=== PATIENT | female | born 1960 | race Caucasian/White ===

== ENCOUNTER 2016-12-15 12:14 | Emergency (ER) | payer BC ==
[~2016-12-15] VITALS: Wt 64.0 kg
[2016-12-15 12:21] VITALS: Wt 64.0 kg
[2016-12-15] MEDS ORDERED: FLUORESCEIN STRIP RIGHT EYE ONE (13:00)
[2016-12-15] MEDS ORDERED: HYDROCODONE/APAP (5/325) TAB PO ONE (13:00)
[2016-12-15] MEDS ORDERED: TRAM-40 PO (13:31)
[2016-12-15] MEDS ORDERED: GANC5GEL OP (13:31)
[2016-12-15] MEDS ORDERED: CEPH500C PO (13:31)
--- NOTE | 2016-12-15 14:15 | ERD ---
ER Documentation Chief Complaint Date/Time DATE: 12/15/16 TIME: 14:10 Chief Complaint right eye pain and redness for 4 days. no fevers. HPI 56-year-old female comes in with right lower eyelid swelling and redness for the past 4 days. Patient was seen in a nearby emergency room at [place] and was given acyclovir. She states that they did an exam and was told that it was a viral infection. She states that she was given a prescription for [place] but the pharmacy did not have the medication and was not able to fill the pain medication. Currently she is not taking anything for pain, this is her only medication. She denies photophobia, blurred vision. She does report a prodrome of symptoms that include fever and body aches previously. No eye discharge from the right eye. No ear or nasal pain. ROS All systems reviewed and are negative except as per history of present illness. Medications Home Meds Active Scripts Cephalexin* (Cephalexin*) 500 Mg Capsule, 500 MG PO Q6, #20 CAP Prov:SCOTT COVARRUBIAS PA-C 12/15/16 Tramadol Hcl* (Ultram*) 50 Mg Tablet, 50 MG PO Q6H Y for PAIN, #15 TAB Prov:SCOTT COVARRUBIAS PA-C 12/15/16 Ganciclovir (Zirgan) 5 Gm Gel..gm., 1 DROP OP 5 TIMES DAILY, #1 Prov:SCOTT COVARRUBIAS PA-C 12/15/16 PMhx/Soc Medical and Surgical Hx: pt denies Surgical Hx History of Surgery: No Hx Neurological Disorder: No Hx Respiratory Disorders: No Hx Cardiac Disorders: Yes (HTN, HDL) Hx Psychiatric Problems: Yes (DEPRESSION) Hx Miscellaneous Medical Probl: No Hx Alcohol Use: No Hx Substance Use: No Hx Tobacco Use: No Smoking Status: Never smoker Physical Exam Vitals Vital Signs Date Time Temp Pulse Resp B/P Pulse Ox O2 Delivery O2 Flow Rate FiO2 12/15/16 12:21 97.9 68 20 170/8 99 Physical Exam General: Well-developed, well-nourished. The patient appears in no acute distress. HEENT: Head is normocephalic, atraumatic. No scleral icterus. Pupils are equal , round, and reactive. Eyes are Juan R oral mucous membranes are moist. No pharyngeal erythema. No lesions in auditory canal. No nasal lesions. Eye Exam: Visual Cline: Intact in all four quadrants bilaterally Lac ducts/glands: No swelling Lids w/ evertion: Normal, no foreign body Conj/[place]: Clear, negative Fluorescein/Vicki's, no dendritic findings Anterior Chamber: Clear Retina exam: No obvious abnormality Neck: Supple. Nontender. Lungs: Clear to auscultation. Normal air movement. Heart: Regular rate and rhythm. S1 and S2 are normal. No murmurs, gallops, or rubs. Abdomen: Soft, nontender, nondistended. Bowel sounds are normoactive. Extremities: No clubbing or cyanosis. Normal pulses. Moving extremities x 4. No weakness. Neurologic: Alert and oriented 3. No focal deficits. Skin: Normal turgor. No rash or lesions. Results 24 hrs Current Medications Medications (Trade) Dose Ordered Sig/Haider Route PRN Reason Start Time Stop Time Status Last Admin Dose Admin Acetaminophen/ Hydrocodone Bitart ([place] (5/325)) 1 tab ONCE ONCE PO 12/15/16 13:00 12/15/16 13:53 DC 12/15/16 12:51 Fluorescein Sodium (Edcrf-B-Rtxkp) 1 strip ONCE ONCE RIGHT EYE 12/15/16 13:00 12/15/16 13:53 DC Procedures/MDM ED course: She was given [place] for pain. MDM: 56-year-old female presents to the emergency room with right lower eyelid shingles. No active evidence of herpetic ophthalmicus. She does have surrounding edema and inflammation of the right lower eyelid, no involvement of the globe. She has no signs of an orbital cellulitis. She was advised to follow-up with ophthalmology tomorrow morning, she was given information to [facility]. No Vo sign, no Lu Galan seen. Zirgan will be given as precautionary measures until she sees ophtho tomorrow. Departure Diagnosis: Primary Impression: Shingles Condition: Good Patient Instructions: Shingles (Herpes Zoster) Referrals: [facility] Hours: Mon - Fri 9:00 AM - 5:00 PM Additional Instructions: OPHTHALMOLOGY SPECIALIST: YOU HAVE A MEDICAL CONDITION WHICH REQUIRES YOU TO SEE A SPECIALIST WITHIN THE NEXT 1-2 DAYS. PLEASE FOLLOW UP WITH YOUR PRIMARY PHYSICIAN FOR REFFERAL.IF YOU DO NOT HAVE A PRIMARY CARE PHYSICIAN AND/OR YOU CAN NOT AFFORD TO SEE A PHYSICIAN THE FOLLOWING RESOURCES HAVE BEEN SUPPLIED TO YOU. IT IS YOUR RESPONSIBILITY TO BE SEEN BY THE SPECIALIST SCOTT COVARRUBIAS PA-C Dec 15, 2016 14:15
== END 2016-12-15 13:35 | disposition home or self-care (01) ==
LOC: FTE 12:14
DX: B02.9 Zoster without complications (principal); I10 Essential (primary) hypertension
CPT/HCPCS: Z7502; Z7610; 99284

== ENCOUNTER 2017-02-11 06:57 | Day surgery (SDC) | payer BC ==
[~2017-02-11] VITALS: Ht 162.6 cm; Wt 65.7 kg
[~2017-02-11 06:57] MED LIST: CEPH500C PO; GANC5GEL OP; TRAM-40 PO
[2017-02-11 07:35] VITALS: Ht 162.6 cm; Wt 65.7 kg
[2017-02-11] MEDS ORDERED: cholesterol (07:45)
[2017-02-11] MEDS ORDERED: blood pressure (07:45)
[2017-02-11 08:15] VITALS: BP 205/92; PULSE 83; RESP 23
[2017-02-11] MEDS ORDERED: MIDAZOLAM 1 MG/ML 2 ML INJ ONE ×3 (08:49)
[2017-02-11] MEDS ORDERED: FENTAnyl 50 MCG/ML VIAL ONE (08:49)
[2017-02-11 09:15] VITALS: BP 127/75
--- NOTE | 2017-02-11 09:48 | GILP ---
DATE OF PROCEDURE: NAME OF PROCEDURES: Colonoscopy and biopsy. SURGEON: Edilia Panchal MD PREOPERATIVE DIAGNOSIS: Screening colonoscopy. POSTOPERATIVE DIAGNOSES 1. Colonoscopy all the way to the cecum. 2. Small transverse colon polyp was removed using the biopsy forceps. 3. Large internal and external hemorrhoids. INDICATION FOR THE PROCEDURE: Ms. Timi Roe is a 56-year-old female patient who had rectal bleed ing. The patient never had screening colonoscopy. The patient was scheduled for colonoscopy for fu rther evaluation. The procedure and possible complications are well explained to the patient, she understood and conse nted to the procedure. DESCRIPTION OF PROCEDURE: Under the influence of fentanyl and Versed, the colonoscope was carefully introduced in the rectum and under direct vision, it was advanced all the way to the cecum. FINDINGS: The patient had a small transverse colon polyp and it was removed using the biopsy forcep s. Patient was noted to have large internal and external hemorrhoids. She tolerated the procedure very well and there was no complication from the procedure. At the end of the procedures, she was awake with stable vital signs and she was discharged home to the care of her family. IMPRESSION: 1. Colonoscopy all the way to the cecum. 2. Small transverse colon polyp was removed using the biopsy forceps. 3. Large internal and external hemorrhoids. PLAN: Await histopathology report. Because of the large size of the hemorrhoids and rectal bleedin g. Patient needs surgical evaluation for hemorrhoidectomy. Next screening colonoscopy in 10 years. Dictated By: EDILIA GAMBINO/RYLAN Conf#: [id number] DID#: [id number]
== END 2017-02-11 09:44 | disposition home or self-care (01) ==
LOC: GIL 06:57
PROVIDERS: ATTEND Internal Medicine Gastroenterology
DX: Z12.11 Encounter for screening for malignant neoplasm of colon (principal); K64.4 Residual hemorrhoidal skin tags; K64.8 Other hemorrhoids; D12.3 Benign neoplasm of transverse colon; I10 Essential (primary) hypertension
CPT/HCPCS: 45380; 88305; J2250; J3010; Z7610

== ENCOUNTER 2017-05-07 17:53 | Emergency (ER) | payer BC ==
[~2017-05-07] VITALS: Ht 160 cm; Wt 79.8 kg
[~2017-05-07 17:53] MED LIST changes: -CEPH500C PO; -GANC5GEL OP; -TRAM-40 PO; +blood pressure; +cholesterol
[2017-05-07 17:59] VITALS: Ht 160 cm; Wt 79.8 kg
[2017-05-07] MEDS ORDERED: AZIT250T94 PO (19:45)
[2017-05-07] MEDS ORDERED: NAPR-260 PO (19:46)
--- NOTE | 2017-05-07 20:10 | ERD ---
ER Documentation Chief Complaint Date/Time DATE: 05/07/17 TIME: 20:07 Chief Complaint DENTAL/GUM PAINS HPI This patient is a 48-year-old female with no significant medical history presenting to the emergency department with complaints of right upper gum pain ongoing for the past week. Symptoms are improving slightly. She has not been taking medication for relief of symptoms. Aggravating factors include eating. She denies alleviating factors. She cannot see her dentist. She denies fevers , chills, nausea, vomiting, diarrhea, or other symptoms. ROS All systems reviewed and are negative except as per history of present illness. Medications Home Meds Active Scripts Naproxen* (Naprosyn*) 500 Mg Tablet, 500 MG PO BID Y for PAIN AND/OR INFLAMMATION, #30 TAB Prov:EVELINE COBOS PA-C 05/07/17 Azithromycin* (Zithromax*) 250 Mg Tablet, 250 MG PO .ZPACK DIRECTED, #6 TAB TAKE 500 MG (2 TABS) THE FIRST DAY THEN 250 MG (1 TAB) DAYS 2-5 Prov:EVELINE COBOS PA-C 05/07/17 Reported Medications [cholesterol] No Conflict Check 02/11/17 [blood pressure] No Conflict Check 02/11/17 Allergies Allergies: Coded Allergies: Penicillins (Verified Allergy, Unknown, rash, 02/11/17) PMhx/Soc History of Surgery: No Anesthesia Reaction: No Hx Neurological Disorder: No Hx Respiratory Disorders: No Hx Cardiac Disorders: Yes (high cholesterol) Hx Psychiatric Problems: No Hx Miscellaneous Medical Probl: No Hx Alcohol Use: Yes Hx Substance Use: No Hx Tobacco Use: Yes Smoking Status: Current every day smoker Physical Exam Vitals Vital Signs Date Time Temp Pulse Resp B/P Pulse Ox O2 Delivery O2 Flow Rate FiO2 05/07/17 17:59 98.1 80 18 135/82 99 Physical Exam Const: Nontoxic, well-appearing female in no acute distress. Head: Atraumatic Eyes: Normal Conjunctiva ENT: Normal External Ears, Nose and Mouth. Poor dentition. Gingivitis noted. There is swelling with erythema around the right upper incisor. Neck: Full range of motion..~ No meningismus. Skin: No petechiae or rashes Back: No midline or flank tenderness Ext: No cyanosis, or edema Neur: Awake and alert Psych: Normal Mood and Affect Procedures/MDM 56-year-old female presents to the emergency department with complaints of dental pain. On physical examination vital signs are within normal limits. There is gingivitis and poor dentition noted with some redness of the gums surrounding the right upper incisor. The patient stable for outpatient management with a prescription for azithromycin and naproxen. I will cover her for possible dental abscess. Her questions and concerns were addressed and she agreed with the discharge plan and diagnosis. Close follow-up with the primary care physician and the dentist advised. Strict ER return precautions were discussed and the patient demonstrated good understanding of information given. Departure Diagnosis: Primary Impression: Toothache Condition: Fair Patient Instructions: Dental Pain Additional Instructions: No mas mejor en 2-3 bull, regresar. Mas peor en 24 horas, regresear rapidamente. Ir a doctor primario in 5-7 bull. Usar instrucciones cuando ashley medicamento. EVELINE COBOS PA-C May 07, 2017 20:09
== END 2017-05-07 19:54 | disposition home or self-care (01) ==
LOC: FTE 17:53
DX: K08.89 Other specified disorders of teeth and supporting structures (principal); F17.210 Nicotine dependence, cigarettes, uncomplicated
CPT/HCPCS: 99283

== ENCOUNTER 2017-07-31 09:46 | Emergency (ER) | payer BC ==
[~2017-07-31] VITALS: Ht 160 cm; Wt 66.0 kg
[~2017-07-31 09:46] MED LIST changes: +AZIT250T94 PO; +CLIN-73 PO; +HYDR-3011 PO; +NAPR-260 PO
[2017-07-31 09:49] VITALS: Ht 160 cm; Wt 66.0 kg
[2017-07-31] MEDS ORDERED: SOD CHLORIDE 0.9% 1,000 ML IV STA (10:22)
[2017-07-31] MEDS ORDERED: hydrALAzine 20 MG INJ IV ONE (10:30)
[2017-07-31] MEDS ORDERED: MAGN400T28 PO (11:05)
[2017-07-31] MEDS ORDERED: AMLO5TAB4 PO (11:05)
[2017-07-31 11:06] LABS: ADD UMIC NO; UR ASCORBIC ACID NEGATIVE (NEGATIVE); UR BILIRUBIN (Dip) NEGATIVE (NEGATIVE); UR BLOOD (Dip) NEGATIVE (NEGATIVE); UR CLARITY CLEAR (CLEAR); UR COLOR STRAW (YELLOW); UR GLUCOSE (Dip) NEGATIVE (NEGATIVE); UR KETONES (Dip) NEGATIVE (NEGATIVE); UR LEUKOCYTE ESTERASE (Dip) NEGATIVE Leu/ul (NEGATIVE); UR NITRITE (Dip) NEGATIVE (NEGATIVE); UR SPECIFIC GRAVITY (Dip) 1.008 (1.003-1.030); UR TOTAL PROTEIN (Dip) NEGATIVE (NEGATIVE); UR UROBILINOGEN (Dip) NEGATIVE (NEGATIVE)
[2017-07-31 11:21] LABS: BASOPHILS % 0.6 % (0.0-2.0); EOSINOPHILS # 0.1 10^3/ul (0.0-0.5); EOSINOPHILS % 1.4 % (0.0-7.0); HEMATOCRIT 41.7 % (37.0-47.0); HEMOGLOBIN 14.1 g/dl (12.0-16.0); LYMPHOCYTES # 2.1 10^3/ul (0.8-2.9); LYMPHOCYTES % 43.1 % (15.0-51.0); MEAN CORPUSCULAR HEMOGLOBIN 29.1 pg (29.0-33.0); MEAN CORPUSCULAR HGB CONC 33.8 g/dl (32.0-37.0); MEAN PLATELET VOLUME 9.2 fl (7.4-10.4); MONOCYTE # 0.6 10^3/ul (0.3-0.9); MONOCYTES % 11.8 % (0.0-11.0); NEUTROPHIL # 2.1 10^3/ul (1.6-7.5); NEUTROPHILS % 42.9 % (39.0-77.0); PLATELET COUNT 262 10^3/UL (140-415); RED BLOOD COUNT 4.85 10^6/ul (4.20-5.40); WHITE BLOOD COUNT 4.9 10^3/ul (4.8-10.8)
[2017-07-31 11:39] LABS: ALANINE AMINOTRANSFERASE 30 IU/L (13-69); ALBUMIN 4.3 g/dl (3.3-4.9); ALBUMIN/GLOBULIN RATIO 1.34; ALKALINE PHOSPHATASE 93 IU/L (42-121); AMYLASE 71 U/L (11-123); ANION GAP 12 (8-16); ASPARTATE AMINO TRANSFERASE 21 IU/L (15-46); BILIRUBIN,INDIRECT 0.3 mg/dl (0-1.1); BILIRUBIN,TOTAL 0.3 mg/dl (0.2-1.3); BLOOD UREA NITROGEN 16 mg/dl (7-20); CALCIUM 8.9 mg/dl (8.4-10.2); CARBON DIOXIDE 25 mmol/L (21-31); CHLORIDE 109 mmol/L (97-110); CREATININE 0.72 mg/dl (0.44-1.00); GLUCOSE 93 mg/dl (70-220); SODIUM 142 mmol/L (135-144); TOTAL PROTEIN 7.5 g/dl (6.1-8.1)
[2017-07-31 11:50] LABS: TROPONIN-I < 0.012 ng/ml (0.00-0.12)
[2017-07-31] MEDS ORDERED: HYDR25TA6 PO (11:58)
[2017-07-31] MEDS ORDERED: METOPROLOL 5 MG INJ IV ONE (12:00)
[2017-07-31 12:10] LABS: INR 0.94; PROTIME 12.6 Sec (12.2-14.2)
[2017-07-31 12:11] LABS: PARTIAL THROMBOPLASTIN TIME 28.4 Sec (25.0-35.0)
--- NOTE | 2017-07-31 12:37 | ERA ---
ER Documentation Chief Complaint Date/Time DATE: 07/31/17 TIME: 12:25 Chief Complaint diarrhea x 4 days HPI This is a very pleasant 57-year-old female with known history of hypertension, Vietnamese-speaking, presents to the emergency department complaining of 4 days of loose watery stools. The patient had taken a 7 day course of Bactrim and Keflex for a cellulitis of her left upper extremity. She stated the cellulitis has resolved but after day 7 of the antibiotic she started to develop loose watery stools. She has had roughly 2-3 episodes of loose watery stools over the past 4 days. She feels dehydrated and weak but denies a fever shaking or chills. She has no abdominal pain. She has had no fevers no shaking or chills. She indicates she takes antihypertensive medication but stated she ran out of this several days ago and cannot remember the name of the medication that she takes. She denies a headache or changes in vision. She denies any chest pain or pressure that radiates to the neck or back or jaw. Is also stated that she has a known history of hemorrhoids and since the diarrhea she has had worsening of her hemorrhoids with no active rectal bleeding. She states there is a significant amount of pain while defecating but again there is no bleeding. ROS All systems reviewed and are negative except as per history of present illness. Medications Home Meds Active Scripts Hydrocortisone Acetate* (Anusol-HC*) 30 Gm Cream.gm., 1 APPLIC ND BID, #1 TUB Prov:ASHLEY BRITT 07/31/17 Lidocaine (Lidocaine Topical) 30 Ml Jel, 30 ML MM BID, #1 Prov:ASHLEY BRITT 07/31/17 Hydrocortisone Acetate (Anusol-Hc) 25 Mg Supp.rect, 1 SUPP ND BID Y for HEMORROID PAIN/ITCHING, #12 SUPP.RECT Prov:ASHLEY BRITT 07/31/17 Hydrochlorothiazide* (Hydrochlorothiazide*) 25 Mg Tab, 25 MG PO DAILY, #30 TAB Prov:ASHLEY BRITT 07/31/17 Reported Medications Magnesium Oxide* (Magnesium Oxide*) 400 Mg Tablet, 400 MG PO DAILY, TAB 07/31/17 Amlodipine Besylate* (Norvasc*) 5 Mg Tablet, 5 MG PO DAILY, TAB 07/31/17 Discontinued Reported Medications [cholesterol] No Conflict Check 02/11/17 [blood pressure] No Conflict Check 02/11/17 Discontinued Scripts Hydroxyzine Hcl* (Hydroxyzine Hcl*) 25 Mg Tablet, 25 MG PO Q8H Y for ITCHING, # 30 TAB Prov:JEFF MANRIQUEZ NP 07/23/17 Clindamycin Hcl* (Clindamycin Hcl*) 300 Mg Capsule, 300 MG PO TID for 7 Days, CAP Prov:JEFF MANRIQUEZ NP 07/23/17 Naproxen* (Naprosyn*) 500 Mg Tablet, 500 MG PO BID Y for PAIN AND/OR INFLAMMATION, #30 TAB Prov:EVELINE COBOS PA-C 05/07/17 Azithromycin* (Zithromax*) 250 Mg Tablet, 250 MG PO .ZPACK DIRECTED, #6 TAB TAKE 500 MG (2 TABS) THE FIRST DAY THEN 250 MG (1 TAB) DAYS 2-5 Prov:EVELINE COBOS PA-C 05/07/17 Allergies Allergies: Coded Allergies: Penicillins (Verified Allergy, Unknown, rash, 02/11/17) PMhx/Soc History of Surgery: No Anesthesia Reaction: No Hx Neurological Disorder: No Hx Respiratory Disorders: No Hx Cardiac Disorders: Yes (htn ) Hx Psychiatric Problems: No Hx Miscellaneous Medical Probl: Yes (HEMORRHOIDS) Hx Alcohol Use: Yes (1-2 BEERS DAILY) Hx Substance Use: No Hx Tobacco Use: Yes (10 CIGS/DAY) Smoking Status: Current every day smoker Physical Exam Vitals Vital Signs Date Time Temp Pulse Resp B/P Pulse Ox O2 Delivery O2 Flow Rate FiO2 07/31/17 12:41 98.1 69 18 146/89 100 Room Air 07/31/17 12:00 98.0 71 18 177/93 100 Room Air 07/31/17 09:49 97.9 77 18 208/91 99 Physical Exam Constitutional:Well-developed. Well-nourished. HEENT:Normocephalic. Atraumatic.Pupils were equal round reactive to light. Moist mucous membranes.No tonsillar exudates. Funduscopy exam shows sharp optic disks bilaterally and venous pulsations are present Neck: No nuchal rigidity. No lymphadenopathy. No posterior cervical spine tenderness or step-offs. Respiratory: Not using accessory muscles of respiration.Lungs were clear to auscultation bilaterally. No rhonchi. No rales. No wheezing. Cardiovascular: Regular rate regular rhythm.No murmurs. No rubs were appreciated.S1, S2 normal. Distal pulses are palpable 2+ bilaterally. GI: Abdomen was soft. Nontender. Non Distended. No pulsatile abdominal masses or bruits. No rebound. No guarding. Bowel sounds were present and normal. : External hemorrhoids at the 3:00 and 9 o'clock position nonthrombosed no active bleeding no tenderness on rectal exam Muscle skeletal: Full range of motion of both the upper and lower extremities bilaterally.Normal muscle tone.No assymetrical calf tenderness or swelling. Skin: No petechia, no purpura. No lesions on the palms or the soles of the feet. No maculopapular rash. NEURO: Patient was alert, awake, orientated x3.No facial droop. Gait observed and normal with no ataxia.Speech had regular rate and rhythm. No focal neurological deficits. Result Diagram: 07/31/17 1105 07/31/17 1105 Results 24 hrs Laboratory Tests Test 07/31/17 10:45 07/31/17 11:05 Urine Color STRAW Urine Clarity CLEAR Urine pH 6.0 Urine Specific Strum 1.008 Urine Ketones NEGATIVEmg/dL Urine Nitrite NEGATIVEmg/dL Urine Bilirubin NEGATIVEmg/dL Urine Urobilinogen NEGATIVEmg/dL Urine Leukocyte Esterase NEGATIVELeu/ul Urine Hemoglobin NEGATIVEmg/dL Urine Glucose NEGATIVEmg/dL Urine Total Protein NEGATIVEmg/dl White Blood Count 4.910^3/ul Red Blood Count 4.8510^6/ul Hemoglobin 14.1g/dl Hematocrit 41.7% Mean Corpuscular Volume 86.0fl Mean Corpuscular Hemoglobin 29.1pg Mean Corpuscular Hemoglobin Concent 33.8g/dl Red Cell Distribution Width 12.0% Platelet Count 04417^3/UL Mean Platelet Volume 9.2fl Neutrophils % 42.9% Lymphocytes % 43.1% Monocytes % 11.8% Eosinophils % 1.4% Basophils % 0.6% Nucleated Red Blood Cells % 0.0/100WBC Neutrophils # 2.110^3/ul Lymphocytes # 2.110^3/ul Monocytes # 0.610^3/ul Eosinophils # 0.110^3/ul Basophils # 0.010^3/ul Nucleated Red Blood Cells # 0.010^3/ul Prothrombin Time 12.6Sec Prothrombin Time Ratio 1.0 INR International Normalized Ratio 0.94 Activated Partial Thromboplast Time 28.4Sec Sodium Level 142mmol/L Potassium Level 4.0mmol/L Chloride Level 109mmol/L Carbon Dioxide Level 25mmol/L Anion Gap 12 Blood Urea Nitrogen 16mg/dl Creatinine 0.72mg/dl Glucose Level 93mg/dl Calcium Level 8.9mg/dl Total Bilirubin 0.3mg/dl Direct Bilirubin 0.00mg/dl Indirect Bilirubin 0.3mg/dl Aspartate Amino Transf (AST/SGOT) 21IU/L Alanine Aminotransferase (ALT/SGPT) 30IU/L Alkaline Phosphatase 93IU/L Troponin I < 0.012ng/ml Total Protein 7.5g/dl Albumin 4.3g/dl Globulin 3.20g/dl Albumin/Globulin Ratio 1.34 Amylase Level 71U/L Lipase 69U/L Current Medications Medications (Trade) Dose Ordered Sig/Haider Route PRN Reason Start Time Stop Time Status Last Admin Dose Admin Sodium Chloride (NS) 1,000 ml @ 1,000 mls/hr Q1H STAT IV 07/31/17 10:22 07/31/17 11:21 DC 07/31/17 10:22 Hydralazine HCl (Apresoline) 10 mg ONCE ONCE IV 07/31/17 10:30 07/31/17 10:31 DC Metoprolol Tartrate (Lopressor) 5 mg ONCE ONCE IV 07/31/17 12:00 07/31/17 12:01 DC Procedures/MDM This patient presented to the emergency department with severely elevated blood pressure. My differential diagnosis included but was not limited to conditions that could end-organ damage such as acute coronary syndrome, acute pulmonary edema, aortic dissection, subarachnoid hemorrhage, intracerebral hemorrhage, cerebral infarction, withdrawal syndromes from beta blockers, or states of catecholamine excess such as pheochromocytoma or drug intoxication. Ancillary lab work was obtained. There was no elevation in the BUN and creatinine to suggest acute renal failure. Electrolytes were normal. Cardiac enzyme was normal and the 12 lead EKG showed no acute ischemic changes or left ventricular hypertrophy. 12 Lead EKG tracing ordered and reviewed by myself showed: Normal sinus rhythm of 72 bpm and no arrhythmia. ND interval normal. QRS duration normal. No ST segment elevation No ST segment depression. No changes consistent with acute ischemia. Given that the patient had an absence of cerebral, ocular, cardiac or renal damage the hypertensive urgency was treated with IV agents in the emergency room with improvement of the patient's blood pressure. The patient likely appeared to be complaint with primary care physician and will follow up with their PCP in the next 24-48 hours. They were instructed to return to the emergency department at anytime if there is any worsening of their condition such as development of chest pain or a headache. They were instructed to resume previous medication regimen or initiate a suitable medication regimen under care of the PCP to enable proper monitoring for drug reactions. The patient was also informed on the adverse side effects and adverse drug interactions of the medications prescribed to them by myself. The patient gave informed consent to the prescription of the new medication. I did feel the patient's diarrhea was a result of the antibiotics. She has currently stopped these and there is no signs of severe clinical dehydration but she did receive a liter bolus of 0.9 normal saline. I have provided a prescription of hydrochlorothiazide until the patient is able to follow-up with her PCP for further evaluation into her hypertension. The patient was discharged home in fair condition. They were instructed to return to the emergency department at any time if there was any worsening of their condition. The patient stated they would follow up with their PCP in the next 24-48 hours to initiate a suitable medication regimen under the care of their PCP as well as to allow their PCP to monitor any drug reactions. The patient was discharged home with prescriptions after they gave informed consent to the new medication. They were also fully informed by myself on the adverse effects and adverse drug interactions in order to provide adequate safeguards to prevent possible adverse reactions to medications. Departure Diagnosis: Primary Impression: Diarrhea Qualified Code: R19.7 - Diarrhea, unspecified type Additional Impressions: Hypertensive urgency Hemorrhoids Qualified Code: K64.1 - Grade II hemorrhoids Condition: Fair Patient Instructions: Treating Diarrhea, Hypertension, Established, Out Of Control Referrals: NADIR SANTORO (PCP) ASHLEY BRITT Jul 31, 2017 12:37
[2017-07-31 12:41] VITALS: BP 146/89; PULSE 69; RESP 18; TEMP 98.1
[2017-07-31] MEDS ORDERED: HYDR25SU23 PR (13:40)
[2017-07-31] MEDS ORDERED: HYDR30CR75 PR (13:40)
[2017-07-31] MEDS ORDERED: LIDO30JE13 MM (13:40)
== END 2017-07-31 13:40 | disposition home or self-care (01) ==
LOC: E/R 09:46
DX: R19.7 Diarrhea, unspecified (principal); I16.9 Hypertensive crisis, unspecified; K64.1 Second degree hemorrhoids; I10 Essential (primary) hypertension; F17.210 Nicotine dependence, cigarettes, uncomplicated
CPT/HCPCS: 80053; 81003; 82150; 83690; 84484; 85025; 85610; 85730; 87086; 93005; J7030; Z7502; J0360

== ENCOUNTER 2017-10-30 19:22 | Emergency (ER) | END 2017-10-31 00:46 | disposition home or self-care (01) ==

== ENCOUNTER 2018-01-23 19:04 | Emergency (ER) | END 2018-01-24 00:56 | disposition home or self-care (01) ==